=== PATIENT | female | born 2000 | race Caucasian/White ===

== ENCOUNTER 2020-12-08 16:34 | Outpatient (CLI) | payer OTHER, SELFPAY ==
[2020-12-08] VITALS (10 sets, daily range): BP systolic 113–125; BP diastolic 58–68; PULSE 61–85; O2SAT 100
[2020-12-08 17:30] LABS: Basophils Percent Auto 0.2 % (0.2-1.2); Eosinophils Absolute Auto 0.1 K/mm3 (0-0.3); Eosinophils Percent Auto 0.7 % (0-4.4); Hematocrit 32.2 % (37.0-47.0); Hemoglobin 11.2 g/dL (12.0-15.0); Immature Granulocyte Absolute 0.05 K/mm3 (0.00-0.031); Immature Granulocyte Percent A 0.5 % (0-0.5); Lymphocytes Absolute Auto 1.73 K/mm3 (0.9-3.2); Lymphocytes Percent Auto 16.4 % (18.3-44.2); Mean Corpuscular HGB Conc 34.8 g/dl (32-36); Mean Corpuscular Hemoglobin 32.4 pg (26-34); Mean Corpuscular Volume 93.1 fl (80-100); Mean Platelet Volume 10.4 fl (7.4-10.4); Monocytes Absolute Auto 0.9 K/mm3 (0.1-0.6); Monocytes Percent Auto 8.2 % (2.6-8.5); Neutrophils Absolute Auto 7.8 K/mm3 (1.3-6.7); Platelet Count Result 223 k/mm3 (150-375); Red Blood Count 3.46 M/mm3 (4.2-5.4); Red Cell Distribution Width 13.2 % (11.5-14.5); White Blood Count 10.6 K/mm3 (4.5-10.0)
[2020-12-08 17:35] LABS: Add Urine Microscopic? YES; Appearance Urine Cloudy (Clear); Bacteria Urine Trace /hpf; Bilirubin Urine Negative (Negative); Blood Urine Negative (Negative); Color Urine Yellow (Yellow); Glucose Urine UA Negative (Negative); Ketones Urine Negative (Negative); Leukocyte Esterase Ur 3+ LEU/UL (NEGATIVE); Mucus Urine Rare /lpf; Nitrate Urine Negative (Negative); Protein Urine Negative (Negative); Specific Grav Ur 1.008 (1.001-1.035); Squamous Epithelial Cell Urine Many /hpf (Few); Urobilinogen Urine Negative mg/dL (<2.0); WBC Urine 16-20 /hpf (0-3)
[2020-12-08 17:41] LABS: Alanine Aminotransferase 12 U/L (4-35); Albumin Level 3.3 g/dL (3.5-5.1); Alkaline Phosphatase 146 U/L (38-126); Anion Gap 6 mmol/L (8-16); Aspartate Amino Transferase 21 U/L (14-36); Bilirubin,Total 0.2 mg/dL (0.2-1.3); Blood Urea Nitrogen 9 mg/dL (7-17); Carbon Dioxide 23 mmol/L (22-30); Chloride 105 mmol/L (98-107); Estimated Glomerular Filt Rate > 60; Glucose 79 mg/dL (65-105); Potassium 4.2 mmol/L (3.4-5.0); Sodium 134 mmol/L (137-145)
[2020-12-08 18:07] LABS: Creatinine Urine 35.2 mg/dL; Total Protein Urine Random 14 mg/dL
== END 2020-12-08 18:35 | disposition home or self-care (01) ==
LOC: ANHOBOP 16:41 → ANHOBPP 16:42
PROVIDERS: Visit Provider Obstetrics & Gynecology
DX: R60.0 Localized edema (principal); Z34.90 Encounter for supervision of normal pregnancy, unspecified, unspecified trimester; Z3A.00 Weeks of gestation of pregnancy not specified
CPT/HCPCS: 36415; 59025; 80053; 81001; 82570; 84156; 84550; 85025; 87086; 99199

== ENCOUNTER 2020-12-09 20:20 | Outpatient (NON) | payer OTHER, SELFPAY ==
[2020-12-09 20:42] VITALS: BMI 30.6
[2020-12-10 00:03] LABS: Total Protein Urine Random 14 mg/dL
[2020-12-10 00:04] LABS: Creatinine Urine 68.5 mg/dL
[2020-12-10 00:11] LABS: Creatinine 24 Hour Urine 1.4 gm/24 (0.8-1.8); Total Volume 24 Hour Urine 2100 ml
[2020-12-10 00:12] LABS: Total Protein Urine 24 Hr 294 mg/24hr (28-141); Total Volume 24 Hour Urine 2100 ml
== END 2020-12-09 20:21 | disposition home or self-care (01) ==
LOC: ANHOBOP 20:28
PROVIDERS: Visit Provider Obstetrics & Gynecology
DX: Z36.89 Encounter for other specified antenatal screening (principal)
CPT/HCPCS: 81050; 82570; 84156

== ENCOUNTER 2020-12-10 09:58 | Outpatient (RCR) | payer OTHER, SELFPAY ==
--- NOTE | ~2020-12-10 | US_ITS ---
EXAMINATION: US OB limited w BPP DATE: 12/10/2020 11:20 INDICATION: Decreased movement during third trimester . TECHNIQUE: Real-time pelvic ultrasound was performed. The interpreting radiologist was not present fo r the study. COMPARISON: None. FINDINGS: There is a single living fetus in breech presentation. The placenta is anterior. heart rate is 135 beats per minute (bpm). Biophysical profile performed by the technologist: breathing (30 sec sustained breathing in 30 minutes): 2 out of 2 movement (3 gross body movements in 30 minutes): 2 out of 2 tone (one episode of anubzws-bzfhfsran-tbidekd limb movement): 2 out of 2 Amniotic fluid pocket (2 cm): 2 out of 2 Total score: 8 out of 8 IMPRESSION: 1. Single living fetus in breech presentation with heart rate of 135 bpm. 2. Biophysical profile 8 out of 8. Reviewed, dictated and finalized at location A.
[2020-12-10 10:37] VITALS: BP 116/68; PULSE 69
--- NOTE | 2020-12-10 11:22 | PC.NURSE ---
BPP 04/02
== END 2021-01-10 11:27 | disposition home or self-care (01) ==
LOC: ANHOBOP 09:58
PROVIDERS: Visit Provider Student in an Organized Health Care Education/Training Program
DX: O36.8130 Decreased fetal movements, third trimester, not applicable or unspecified (principal); Z3A.36 36 weeks gestation of pregnancy
CPT/HCPCS: 59025; 76815; 76819

== ENCOUNTER 2021-01-04 03:13 | Observation (INO) | payer OTHER, SELFPAY ==
[2021-01-04 06:10] VITALS: BMI 30.6
--- NOTE | 2021-01-04 06:32 | OBADM ---
This patient, Kait Woodruff, admitted to the OB room Labor/Delivery/Recovery 105 for observation. Patient/family oriented to hospital policies and general routines including ID bracelet, bed and alarms, visiting hours, pain management, procedures, bathroom and other care routines, personal items, smoking policy, room service/diet, and visiting hours. Patient/Family are encouraged to report perceived risks to care and to ask questions if they do not understand what they are told or what they should do.
--- NOTE | 2021-01-05 13:11 | PM.OBTRLD ---
OB - Triage/Final Diagnosis Visit Information Reason for evaluation: threatened labor Comments/Additional reasons for admission: I have assessed the risk for this patient, Kait Esme Woodruff, and determined that she would benefit from observation care.
== END 2021-01-04 06:35 | disposition home or self-care (01) ==
PROVIDERS: Admitting Provider Obstetrics & Gynecology; Visit Provider Obstetrics & Gynecology
DX: O47.1 False labor at or after 37 completed weeks of gestation (principal); Z3A.39 39 weeks gestation of pregnancy
CPT/HCPCS: G0378; G0379

== ENCOUNTER 2021-01-05 16:22 | Outpatient (CLI) | payer OTHER, SELFPAY ==
--- NOTE | 2021-01-05 18:01 | PC.NURSE ---
Pt here with c/o small amts of leaking a few times today since 0600. States clear fluid. ROM plus obtained, pt states she felt another small amt. After initial ROM plus negative, continued to have pt sit to obtain a new sample.
[2021-01-05 18:57] VITALS: BP 128/75; PULSE 81
== END 2021-01-05 18:00 | disposition home or self-care (01) ==
LOC: ANHOBOP 17:51 → ANHLDR 17:52
PROVIDERS: Visit Provider Student in an Organized Health Care Education/Training Program
DX: O41.8X90 Other specified disorders of amniotic fluid and membranes, unspecified trimester, not applicable or unspecified (principal)
CPT/HCPCS: 59025; 84112; 99199

== ENCOUNTER 2021-01-09 00:18 | Inpatient (IN) | payer OTHER, SELFPAY ==
[2021-01-09] VITALS (151 sets, daily range): BP systolic 80–152; BP diastolic 12–104; PULSE 57–111; RESP 16; TEMP 36.2–36.8; O2SAT 95–100; BMI 30.6
[2021-01-09] MEDS: miSOPROStol 25 MCG TABLET VAGINAL (01:36)
[2021-01-09 01:47] LABS: Basophils Percent Auto 0.2 % (0.2-1.2); Eosinophils Absolute Auto 0.1 K/mm3 (0-0.3); Eosinophils Percent Auto 0.9 % (0-4.4); Hematocrit 33.9 % (37.0-47.0); Hemoglobin 11.7 g/dL (12.0-15.0); Immature Granulocyte Absolute 0.05 K/mm3 (0.00-0.031); Immature Granulocyte Percent A 0.4 % (0-0.5); Lymphocytes Absolute Auto 2.07 K/mm3 (0.9-3.2); Lymphocytes Percent Auto 17.5 % (18.3-44.2); Mean Corpuscular HGB Conc 34.5 g/dl (32-36); Mean Corpuscular Hemoglobin 32.4 pg (26-34); Mean Corpuscular Volume 93.9 fl (80-100); Mean Platelet Volume 11.3 fl (7.4-10.4); Monocytes Percent Auto 8.4 % (2.6-8.5); Neutrophils Absolute Auto 8.6 K/mm3 (1.3-6.7); Neutrophils Percent Auto 72.6 % (45.5-73.1); Platelet Count Result 214 k/mm3 (150-375); Red Blood Count 3.61 M/mm3 (4.2-5.4); Red Cell Distribution Width 13.7 % (11.5-14.5); White Blood Count 11.8 K/mm3 (4.5-10.0)
[2021-01-09 02:02] LABS: Amphetamine Screen Urine Negative (Negative); Barbiturate Screen Urine Negative (Negative); Benzodiazepines Screen Urine Negative (Negative); Cannabinoid Screen Urine Positive (Negative); Cocaine Screen Urine Negative (Negative); Methadone Screen Urine Negative (Negative); Opiate Screen Urine Negative (Negative); Phencyclidine Screen Urine Negative (Negative)
--- NOTE | 2021-01-09 02:46 | LDADM ---
This patient, Kait Woodruff, was admitted to Labor/Delivery/Recovery 105 on 01/09/21 at 00:18. Plans for labor, pain management and were discussed with patient. Patient/family oriented to hospital policies and general routines including ID bracelet, bed and alarms, visiting hours, pain management, procedures, bathroom and other care routines, personal items, smoking policy, room service/diet and guest tray routines, security routines, and visiting hours. Patient/Family are encouraged to report perceived risks to care and to ask questions if they do not understand what they are told or what they should do. See OBIX for further documentation.
[2021-01-09] MEDS: LACTATED RINGERS 1,000 ML 125 ML IV CONT ×3 (04:38→11:43)
[2021-01-09] MEDS: AMPICILLIN 2 GM/NS 100 ML 2 GM/100 ML BAG IVPB (04:40)
[2021-01-09] MEDS: fentaNYL CITRATE INJ (*CRX) 100 MCG/2 ML VIAL 50 MCG IV PUSH (05:42)
--- NOTE | 2021-01-09 06:48 | WPDANESEPPF ---
Anes - Initial Pre Proc Eval Procedure: labor epidural Date/Time: 01/09/21 06:24 Surgeon: Toi Sánchez MD Pre Op Diagnosis: labor pain Pre Op Diagnosis: Induction Patient Data Age: 20 Gender: F Height: 1.7 m Weight: 88.6 kg Last Vital Signs Temp 36.4 C L 01/09/21 05:30 Pulse 75 01/09/21 06:45 BP 123/74 01/09/21 06:45 Pulse Ox 100 01/09/21 06:45 Allergies Allergy/AdvReac Type Severity Reaction Status Date / Time No Known Allergies Allergy Verified 12/14/20 14:12 Home Medications Medication Instructions Recorded Confirmed Type famotidine [Pepcid] 40 mg PO DAILY 12/14/20 01/09/21 History prenat.vits,jatinder,jwu-nffn-njusp 1 tablet PO DAILY 12/14/20 01/09/21 History sertraline 50 mg PO DAILY 12/14/20 01/09/21 History valacyclovir [Valtrex] 500 mg PO DAILY 12/14/20 01/09/21 History Laboratory Tests 01/09/21 01/09/21 01/09/21 01:25 01:25 01:25 WBC 11.8 K/mm3 H K/mm3 (4.5-10.0) RBC 3.61 M/mm3 L M/mm3 (4.2-5.4) Hgb 11.7 g/dL L g/dL (12.0-15.0) Hct 33.9 % L % (37.0-47.0) MCV 93.9 fl fl (80-100) MCH 32.4 pg pg (26-34) MCHC 34.5 g/dl g/dl (32-36) RDW 13.7 % % (11.5-14.5) Plt Count 214 k/mm3 k/mm3 (150-375) MPV 11.3 fl H fl (7.4-10.4) Immature Gran % (Auto) 0.4 % % (0-0.5) Neut % (Auto) 72.6 % % (45.5-73.1) Lymph % (Auto) 17.5 % L % (18.3-44.2) [place] % (Auto) 8.4 % % (2.6-8.5) Eos % (Auto) 0.9 % % (0-4.4) Baso % (Auto) 0.2 % % (0.2-1.2) Lymph # (Auto) 2.07 K/mm3 K/mm3 (0.9-3.2) [place] # (Auto) 1.0 K/mm3 H K/mm3 (0.1-0.6) Eos # (Auto) 0.1 K/mm3 K/mm3 (0-0.3) Baso # (Auto) 0.0 K/mm3 K/mm3 (0.0-0.1) Abs Immat Gran (auto) 0.05 K/mm3 H K/mm3 (0.00-0.031) Absolute Neuts (auto) 8.6 K/mm3 H K/mm3 (1.3-6.7) Absolute Nucleated RBC 0.0 K/mm3 K/mm3 (0.0-0.012) Nucleated RBC % 0.0 % % (0.0-0.2) Urine Opiates Screen Urine Methadone Screen Ur Barbiturates Screen Ur Phencyclidine Scrn Ur Amphetamine Screen U Benzodiazepines Scrn Urine Cocaine Screen U Cannabinoids Screen RPR Pending Blood Type A Positive Antibody Screen Negative 01/09/21 01:25 WBC RBC Hgb Hct MCV MCH MCHC RDW Plt Count MPV Immature Gran % (Auto) Neut % (Auto) Lymph % (Auto) [place] % (Auto) Eos % (Auto) Baso % (Auto) Lymph # (Auto) [place] # (Auto) Eos # (Auto) Baso # (Auto) Abs Immat Gran (auto) Absolute Neuts (auto) Absolute Nucleated RBC Nucleated RBC % Urine Opiates Screen Negative (Negative) Urine Methadone Screen Negative (Negative) Ur Barbiturates Screen Negative (Negative) Ur Phencyclidine Scrn Negative (Negative) Ur Amphetamine Screen Negative (Negative) U Benzodiazepines Scrn Negative (Negative) Urine Cocaine Screen Negative (Negative) U Cannabinoids Screen Positive A (Negative) RPR Blood Type Antibody Screen Patient hx anesthesia problems: none Family hx anesthesia problems: none PMFSH Family History Family History Other Unknown family medical history Social History Social History Smoking status: Never smoker Substance use: never Spiritual care concerns: No Anes - Eval Final PreProcedure Day of Procedure 01/09/21 06:48 Patient weight: overweight Heart: regular rate and rhythm Lungs: clear to auscultation and normal air movement Airway: Mallampati scale Neurol
--- NOTE | 2021-01-09 07:16 | WPDHPUPDATE1 ---
History and Physical Update Update Date/Time: 01/09/21 07:16 20 yo at 40w1d who presents for induction of labor. Her has been uncomplicated thus far. She endorses good movement. She denies any regular contractions, vaginal bleeding or leakage of fluid. 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 She denies any prodromal symptoms. History and Physical has been reviewed, including an updated exam of the patient. There are NO changes in the patient's condition. Risks, benefits, and alternatives have been discussed and questions answered. Patient agrees to proceed with procedure. A/P: 20 yo at 40w1d who presents for IOL admit to L&D routine admission orders Rh+ GBS +, will start PCN in labor FHT cat 1 cvx 1.5 cm plan for cytotec induction HSV+, on suppression, no visible lesions continuous EFM will augment with pitocin as necessary
--- NOTE | 2021-01-09 07:20 | PM.OBPNLAB ---
Pain Control Date/time seen: 01/09/21 07:20 Pain control: epidural Pelvic Exam Dilation (cm): 4 Effacement (%): 70 station: -3 Amniotic membrane status: Intact Contractions Monitor mode: External Contraction frequency: 2 Contraction pattern: Regular Status status: Category l Assessment and Plan Assessment: induction ongoing Plan: begin patient augmentation Comments: AROM for copious amount of clear fluid
[2021-01-09 08:00] LABS: Rapid Plasma Reagin Non-Reactive (NonReactive)
[2021-01-09] MEDS: OXYTOCIN 30 UNITS/NS 500 ML 30 UNITS/500 ML BAG IV CONT (08:38)
[2021-01-09] MEDS: AMPICILLIN 1 GM/NS 50 ML 1 GM/50 ML BAG IVPB ×2 (08:38→12:55)
[2021-01-09] MEDS: FAMOTIDINE 20 MG/2 ML VIAL IV PUSH (10:01)
--- NOTE | 2021-01-09 13:51 | PM.OBPRVD ---
OB - Delivery Note Procedure Procedure: Patient pushed for a spontaneous vaginal delivery. The fetus was delivered atraumatically and placed on the maternal abdomen. The cord was clamped and cut after 1 minute of life. The cord was double clamped and cut and a segment of cord was collected for cord gases. Cord blood was collected for blood type and Coomb's testing. The placenta delivered spontaneously and was noted to be intact. The perineum was inspected and there were a left and right labial as well as a 2nd degree perineal laceration. The lacerations were repaired with 2-0 vicryl in the usual fashion. The uterus was firm and good hemostasis was noted. The patient and fetus were stable in the delivery room. Intrapartal events: None Induction method: per misoprostol protocol Delivery augmentation: rupture of membranes and pitocin Delivery monitor: external FHT Route of delivery: Episiotomy description: None Laceration Description: Perineal - 2nd Degree and Labial (left and right) Delivery repair: vicryl Specimen: No Quantitative Blood Loss (ml): 350 Anesthesia type: Epidural Disposition: floor () Complications: No immediate complications [place] Baby Date of : 01/09/21 Time of : 13:24 Weeks of gestation at delivery: 40 Infant gender: Female Weight (pounds): 9 Weight (ounces): 0 presentation: vertex position: Right Occiput Anterior Placenta delivery description: Spontaneous score one minute: 8 score five minutes: 9
[2021-01-09] MEDS: OXYTOCIN 30 UNITS/NS 500 ML 30 UNITS/500 ML BAG 125 UNITS IV CONT (14:02)
[2021-01-09] MEDS: WITCH HAZEL 40 PADS 1 PAD TOPICAL ×2 (16:36→16:39)
[2021-01-09] MEDS: BENZOCAINE 20% AER SPR (*SP) 56 GM CAN 1 SPRAY TOPICAL (16:39)
[2021-01-09] MEDS: IBUPROFEN 600 MG TABLET PO ×2 (17:45→23:43)
--- NOTE | 2021-01-09 17:59 | PC.NURSE ---
1655 - Patient transferred to post room #287 via wheelchair. Support person present. Oriented to unit, room, information board, rooming in, admission packet and security measures. Patient verbalizes understanding.
[2021-01-10 00:05] VITALS: BP 130/80; PULSE 60; RESP 16; TEMP 37; O2SAT 100
[2021-01-10 04:34] VITALS: BP 145/82; PULSE 71; RESP 16; TEMP 36.7; O2SAT 100
[2021-01-10 05:48] LABS: Hematocrit 31.9 % (37.0-47.0); Hemoglobin 11.1 g/dL (12.0-15.0)
--- NOTE | 2021-01-10 07:03 | P.PNOB_ITS ---
OB - PN: Subj Subjective Date/time seen: 01/10/21 07:03 Patient comments: no complaints, pain well controlled and tolerating diet [place] feeding status: exclusively breast feeding Narrative: patient doing well this AM. No complaints. Pain is well controlled. She reports minimal bleeding. She is ambulating and voiding without difficulty. She is tolerating PO. She denies N/V, fever, chills. OB - PN: Obj Data Labs CBC & Chem 7: 01/10/21 04:30 Labs: Laboratory Results - last 24 hr 01/09/21 01/10/21 01:25 04:30 Hgb 11.1 L Hct 31.9 L RPR Non-reactive OB - PN A/P Plan day: 1 Plan: routine care Comments: patient doing well H/H stable discussed +THC on UDS on admission, CPS may interview patient continue routine care Time Spent With Patient Time: Total time spent is greater than 50% in coordination of care (as documented) at patient's floor/unit and/or counseling patient: Time with patient: less than 15 minutes Review of Systems Review of Systems: All systems reviewed & are unremarkable except as noted in HPI and below Exam Const: General: comfortable and no acute distress Resp: Effort & Inspection: normal respiratory effort Cardio: Rate: regular rate GI: GI Palp: Yes Soft to palpation and No Tenderness to palpation present (GI) Auscultation: normal bowel sounds Other: fundus firm and below umbilicus. Psych: Affect: normal affect
[2021-01-10] MEDS: FAMOTIDINE 20 MG TABLET 40 MG PO (07:41)
[2021-01-10] MEDS: valACYclovir HCL 500 MG TABLET PO (07:41)
[2021-01-10] MEDS: MULTIVIT/MIN/PREN/FOL AC/IRON TABLET 1 TAB PO (07:41)
[2021-01-10] MEDS: SERTRALINE HCL 50 MG TABLET PO (07:41)
[2021-01-10] MEDS: IBUPROFEN 600 MG TABLET PO (07:42)
[2021-01-10] MEDS: DOCUSATE SODIUM 100 MG CAPSULE PO (07:42)
--- NOTE | 2021-01-10 07:45 | PC.NURSE ---
Mother called out for assist with feeding. Mother reports infant has been eagerly latching most feedings, mother has some discomfort at times. Consulted with patient, reviewed infant feeding cues, frequencies, duration of feedings, feeding elimination flow sheet, and signs of adequate intake. Demonstrated stimulation techniques to wake for feeding. Assisted with to breast. Reviewed positioning/alignment in cross cradle, holding breast in ?U? hold and guided asymmetrical latch on. Mother reports she has been using cradle positioning. able to latch correctly. Infant nursed eagerly, with steady draws and frequent swallowing noted. Reviewed signs of a correct latch, effective nursing and suck swallow ratio. would slip to shallow latch, mother reports tenderness. Demonstrated how to adjust latch more deeply while feeding. Mother reports she can feel change in latch and has no tenderness. Nipple care reviewed of lanolin after feedings, warm compresses and gel pads as needed. Suggested mother stimulate while feeding to increase stimulate, increase intake and to assist with maintaining deep latch. Instructed mother to call out for RN assistance if she is unable to latch infant for feeding or she has discomfort with nursing.
[2021-01-10 08:20] VITALS: BP 122/74; PULSE 70; RESP 16; TEMP 36.9; O2SAT 100
--- NOTE | 2021-01-10 08:26 | WPDANLDPN2 ---
Anes-Prog Note L&D Date/Time: 01/10/21 08:26 Comfortable throughout: labor Neuraxial method: epidural Epidural/Spinal procedure site: clean & non-tender Neuro status: Neuro function grossly intact. Cardiovascular status: normal Respiratory status: normal Airway patency: baseline Mental status: baseline Post-Op hydration status: normal Vital Signs: Last Vital Signs Temp 36.7 C 01/10/21 04:34 Pulse 71 01/10/21 04:34 Resp 16 01/10/21 04:34 BP 145/82 H 01/10/21 04:34 Pulse Ox 100 01/10/21 04:34 Pain score (VAS): 0 I/O: Intake & Output 01/09/21 01/10/21 01/10/21 23:59 07:59 15:59 Intake Total 260 Balance 260 Post-procedural complaints: none Patient feedback: Patient satisfied with anesthetic care.
[2021-01-10 12:42] VITALS: BP 111/60; PULSE 75; RESP 16; TEMP 36.6; O2SAT 100
[2021-01-10 20:00] VITALS: BP 122/76; PULSE 71; RESP 16; TEMP 37.1; O2SAT 100
--- NOTE | 2021-01-11 07:06 | P.DS_ITS ---
DS: Admitting Diagnosis Admitting Diagnosis Admitting Diagnosis: intrauterine at term OB - DS: Summary OB Procedures : None OB Procedures Intrapartum: Spontaneous Vag Delivery OB Procedures: : None Status at Discharge Functional status at discharge: independent ambulation Overall status at discharge: patient is back to baseline Time Spent with Patient Time attestation: Total time spent providing and/or coordinating discharge services: Time spent: Less than 30 minutes Exam Const: General: comfortable and no acute distress Resp: Effort & Inspection: normal respiratory effort Auscultation: clear to auscultation bilaterally Cardio: Rate: regular rate GI: GI Palp: Yes Soft to palpation Auscultation: normal bowel sounds Other: Fundus firm below umbilicus Psych: Appearance: grossly normal Mental Status: mental status grossly normal Affect: normal affect Discharge Plan Discharge Consulting providers: Evans Mcintyre Discharging Clinician: Toi Sánchez Patient Disposition: Home, Self-Care Activity: as tolerated and pelvic rest Diet: regular Discharge Instructions: call or return for temperature >100.4, bleeding >2 pads/hr for 2 hrs, pain not controlled with medications, signs/symptoms of mastitis Patient Instructions: Antibiotic Form, Vaginal Delivery (DC) Stand Alone Forms: General Discharge Information Follow-up/Referrals: Toi Sánchez MD [Physician] - 4 Weeks Discharge Medications: New acetaminophen [Mapap (acetaminophen)] 325 mg Tablet 650 mg PO Q6H PRN (Reason: Mild Pain (1-3) Or Headache) Qty: 30 RF: 0 ibuprofen 600 mg Tablet 600 mg PO Q6H PRN (Reason: Cramping) Qty: 30 RF: 0 Continued famotidine [Pepcid] 40 mg Tablet 40 mg PO DAILY RF: 0 sertraline 50 mg Tablet 50 mg PO DAILY RF: 0 prenat.vits,jatinder,dns-xpqw-qnalg Tablet 1 tablet PO DAILY RF: 0 valacyclovir [Valtrex] 500 mg Tablet 500 mg PO DAILY RF: 0 Date of admission: 01/09/21 00:18 Primary Care Provider: PHYSICIAN,FURNACE MAINTENANCE Admitting Provider: Toi Sánchez Attending physician on admission: Toi Sánchez Condition: Stable
[2021-01-11 07:50] VITALS: BP 126/82; PULSE 67; RESP 16; TEMP 36.9; O2SAT 100
[2021-01-11] MEDS: SERTRALINE HCL 50 MG TABLET PO (08:38)
[2021-01-11] MEDS: FAMOTIDINE 20 MG TABLET 40 MG PO (08:38)
[2021-01-11] MEDS: valACYclovir HCL 500 MG TABLET PO (08:38)
[2021-01-11] MEDS: IBUPROFEN 600 MG TABLET PO (08:39)
[2021-01-11] MEDS: DOCUSATE SODIUM 100 MG CAPSULE PO (08:39)
[2021-01-11] MEDS: MULTIVIT/MIN/PREN/FOL AC/IRON TABLET 1 TAB PO (08:39)
--- NOTE | 2021-01-11 10:28 | PCCCNOTE ---
Care Coordination Consult: Met with pt. and FOChris Joao today. Pt. lives at home with Joao. This is pt. and Joao's first child. They have family support. Have all necessary equipment including a crib, carseat, clothing, diapers, and bottles. Pt. reports she wants to breast feed and has been working with nursing. Pt. provided with information regarding breast feeding and marijuana use by nursing. Pt. also provided resources. Pt. reports she has considered utilizing WIC at discharge. Encouraged pt. to apply. Pt. aware she tested positive in urine upon admission and baby's meconium is pending at this time. Pt. reports recreational marijuana use to CC and nursing, declines any other substance use. Pt. denies any further needs.
--- NOTE | 2021-01-11 11:10 | PC.NURSE ---
Consult with pt., mother reports she has nipple pain on left breast while feeding. Left nipple has a center line of scabbing from possible shallow latch. Mother feels infant had a shallow latch during the night and began with scabbing that has increased since. Assisted with to breast. Reviewed positioning/alignment in cross cradle, holding breast in U hold and guided asymmetrical latch on. Mother reports she has been using the cradle positioning and feels that is when pain with latch began. Infant was able to latch correctly. Mother quickly reports she can feel infant is latched more deeply and has minimal tenderness. nursed eagerly, with steady draws and frequent swallowing noted. Reviewed signs of a correct latch, effective nursing and suck swallow ratio. Infant slipped to shallow latch, demonstrated how to adjust latch more deeply while feeding. responded with adjustment and mother reports tenderness was resolved. was able to maintain latch without discomfort to mother. Nipple care reviewed. Mother is feeding as required and waking to feed if needed. has had at least 8 effective feedings in the past 24 hours, and is currently meeting outcomes for weight, output, jaundice and feeding frequencies. Mother states she feels confident to continue effective at home. Reviewed transition to breast milk, signs of adequate intake, and engorgement/relief. Instructed to call ICP if intake/output less than required. Reviewed regular medications mother is taking. Information provided per Carmen. Reviewed community resources on the [facility] website and in the Mom/Baby guide. Information on outpatient services provided. Mother has no further questions at this time.
== END 2021-01-11 12:09 | disposition home or self-care (01) | DRG 560 ==
LOC: ANHLDR 00:21 → ANHOB2 16:57
PROVIDERS: Admitting Provider Student in an Organized Health Care Education/Training Program; Visit Provider Student in an Organized Health Care Education/Training Program
DX: O40.3XX0 Polyhydramnios, third trimester, not applicable or unspecified (principal); O99.824 Streptococcus B carrier state complicating childbirth; O76 Abnormality in fetal heart rate and rhythm complicating labor and delivery; O70.1 Second degree perineal laceration during delivery; Z3A.40 40 weeks gestation of pregnancy; Z37.0 Single live birth
CPT/HCPCS: 36415; 80307; 85014; 85018; 85025; 86592; 86850; 86900; 86901; A9270; J0290; J2590; J2795; J3010; J7120